=== PATIENT | male | born 1975 | race Caucasian/White ===

== ENCOUNTER 2024-09-10 12:14 | Emergency (ER) | payer SELFPAY ==
[~2024-09-10] VITALS: Ht 177.8 cm; Wt 81.6 kg
[2024-09-10 12:23] VITALS: BP 137/106; PULSE 116; RESP 22; TEMP 98.8; O2SAT 94
== END 2024-09-10 12:45 ==
LOC: MED 12:14
DX: Z04.1 Encounter for examination and observation following transport accident (principal); V49.49XA Driver injured in collision with other motor vehicles in traffic accident, initial encounter; Y93.89 Activity, other specified; Y92.481 Parking lot as the place of occurrence of the external cause; Y99.8 Other external cause status
CPT/HCPCS: 99283